=== PATIENT | male | born 1975 | race African-American/Black ===

== ENCOUNTER → 2019-06-18 | Outpatient (CLI) | payer OTHER ==
--- NOTE | 2019-06-18 13:46 | REP ---
Right foot four views : There is no fracture or dislocation. Mineralization and joint spaces are normal. There are no calcifications or foreign bodies. There is calcified atheroma in the distal anterior tibial artery and distal posterior tibial artery. On the lateral view there is possibly a pes planus. This could be confirmed with standing views. Impression: Possible pes planus. This could be confirmed with standing views. Calcified atheroma in the distal anterior tibial artery and distal posterior tibial artery. Otherwise, negative right foot . Left foot four views : There is no fracture or dislocation. Mineralization and joint spaces are normal. There are no calcifications or foreign bodies. There is calcified atheroma in the distal anterior tibial artery and distal posterior tibial artery. Lateral view there is question of a pes planus. This could be confirmed with standing views. Impression: Possible pes planus This could be confirmed with standing views. Calcified atheroma in the anterior tibial artery and posterior tibial artery. Otherwise, negative left foot . Electronically Signed by Anatoly Brown MD 06/18/2019 01:38 P
== END ==
LOC: M RAD 08:52
PROVIDERS: ATTEND Surgery
DX: M79.671 Pain in right foot (principal); M79.672 Pain in left foot; I70.203 Unspecified atherosclerosis of native arteries of extremities, bilateral legs

== ENCOUNTER 2019-10-30 14:18 | Emergency (ER) | payer OTHER ==
[~2019-10-30] VITALS: Ht 175.3 cm; Wt 77.7 kg
[2019-10-30] MEDS ORDERED: KETOROLAC 30 MG/ML VIAL (J1885) IV ONE (14:45)
--- NOTE | 2019-10-30 14:49 | REP ---
Portable chest x-ray: Single view. History: Chest pain. No comparison study. Findings: The lungs are symmetrically aerated and clear. Pleural angles are sharp. EKG electrodes are seen. Heart size is normal. Pulmonary vasculature is not increased. No significant bony abnormality. Impression: Negative portable chest x-ray. Electronically Signed by Naresh Melton MD 10/30/2019 02:40 P
[2019-10-30 15:06] LABS: BASO % 0.4 % (0.0-1.0); EOS # 0.2 10^3/uL (0.0-0.5); EOS % 3.8 % (0.0-3.0); HEMATOCRIT 39.5 % (42.0-52.0); HEMOGLOBIN 12.2 g/dl (13.5-17.5); LYMPH # 2.7 10^3/uL (1.5-5.0); LYMPH % 57.2 % (24.0-44.0); MEAN CORPUSCULAR HEMOGLOBIN 27.1 pg (27.0-33.0); MEAN CORPUSCULAR HGB CONC 30.9 g/dl (32.0-36.5); MEAN CORPUSCULAR VOLUME 87.8 fl (80.0-96.0); MONO # 0.4 10^3/uL (0.0-0.8); MONO % 7.5 % (0.0-5.0); NEUTROPHILS # 1.5 10^3/uL (1.5-8.5); NEUTROPHILS % 30.9 % (36.0-66.0); PLATELET COUNT, AUTOMATED 173 10^3/uL (150-450); WHITE BLOOD COUNT 4.8 10^3/uL (4.0-10.0)
[2019-10-30 15:32] LABS: ERYTHROCYTE SEDIMENTATION RATE 7 mm/hr (0-15)
[2019-10-30 15:47] LABS: ALT/SGPT 34 U/L (12-78); BILIRUBIN,DIRECT 0.1 MG/DL (0.0-0.2); BILIRUBIN,TOTAL 0.3 MG/DL (0.2-1.0); BLOOD UREA NITROGEN 12 MG/DL (7-18); CALCIUM LEVEL 8.6 MG/DL (8.5-10.1); CARBON DIOXIDE LEVEL 29 MEQ/L (21-32); CHLORIDE LEVEL 107 MEQ/L (98-107); CK-MB VALUE MASS 2.9 NG/ML (<3.6); CPK CREATINE PHOSPHOKINASE 1430 U/L (39-308); CREATININE FOR GFR 1.09 MG/DL (0.70-1.30); GLOMERULAR FILTRATION RATE > 60.0 (>60); GLUCOSE, FASTING 83 MG/DL (70-100); LIPASE 92 U/L (73-393); POTASSIUM SERUM 4.2 MEQ/L (3.5-5.1); SODIUM LEVEL 139 MEQ/L (136-145); TOTAL PROTEIN 7.1 GM/DL (6.4-8.2); TROPONIN I 0.08 NG/ML (< 0.10)
[2019-10-30] MEDS ORDERED: NS 1,000 ML IV ONE (16:00)
[2019-10-30 17:18] LABS: CK-MB VALUE MASS 2.8 NG/ML (<3.6); MB/CK RELATIVE INDEX 0.21 (< OR =4); TROPONIN I 0.09 NG/ML (< 0.10)
[2019-10-30 17:28] VITALS: BP 113/63
--- NOTE | 2019-10-30 18:15 | ECGEPIP ---
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
== END 2019-10-30 17:34 | disposition home or self-care (01) ==
LOC: M ED 14:18
DX: R00.1 Bradycardia, unspecified (principal); I45.10 Unspecified right bundle-branch block; R07.81 Pleurodynia; F17.200 Nicotine dependence, unspecified, uncomplicated; Z91.013 Allergy to seafood
CPT/HCPCS: 71045; 80048; 80076; 82550; 82553; 83690; 84484; 85025; 85379; 85652; 93005; 93041; 94760; 96361; 96374; 99285; J1885

== ENCOUNTER → 2020-04-11 | Outpatient (CLI) | payer OTHER ==
--- NOTE | 2020-06-02 14:32 | REP ---
LEFT TIBIA-FIBULA RADIOGRAPHS CLINICAL: Tenderness, swelling. TECHNIQUE: AP and lateral views of the left tibia-fibula. FINDINGS: No acute fracture or dislocation. Skeletal structures, joint spaces, and surrounding soft tissues appear normal. No subcutaneous emphysema or foreign body. IMPRESSION: Normal left tibia-fibula radiographs. MTDD
--- NOTE | 2020-06-02 14:33 | REP ---
LEFT KNEE SERIES CLINICAL: Pain and swelling. TECHNIQUE: AP, lateral, bilateral oblique, and sunrise views of the left knee. FINDINGS: Lateral and sunrise views demonstrate prepatellar soft tissue swelling and possible suprapatellar fusion. There is no evidence for acute fracture or dislocation. There is an irregular area of calcification within the intramedullary distal femur consistent with old bony infarction or chronic benign enchondroma. IMPRESSION: 1. Swelling and possible effusion. 2. No acute fracture or dislocation. MTDD
== END ==
LOC: M RAD 08:40
PROVIDERS: ATTEND Surgery
DX: R22.42 Localized swelling, mass and lump, left lower limb (principal)

== ENCOUNTER 2020-08-06 10:51 | Emergency (ER) | payer OTHER ==
[~2020-08-06] VITALS: Ht 165.1 cm; Wt 90.0 kg
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
[2020-08-06 12:32] LABS: BASO % 0.3 % (0.0-1.0); EOS # 0.1 10^3/uL (0.0-0.5); EOS % 0.5 % (0.0-3.0); HEMATOCRIT 46.1 % (42.0-52.0); HEMOGLOBIN 14.4 g/dl (13.5-17.5); LYMPH # 1.5 10^3/uL (1.5-5.0); LYMPH % 15.4 % (24.0-44.0); MEAN CORPUSCULAR HEMOGLOBIN 27.2 pg (27.0-33.0); MEAN CORPUSCULAR HGB CONC 31.2 g/dl (32.0-36.5); MEAN CORPUSCULAR VOLUME 87.1 fl (80.0-96.0); MONO # 0.6 10^3/uL (0.0-0.8); MONO % 6.2 % (0.0-5.0); NEUTROPHILS # 7.4 10^3/uL (1.5-8.5); NEUTROPHILS % 77.4 % (36.0-66.0); PLATELET COUNT, AUTOMATED 179 10^3/uL (150-450); RED BLOOD COUNT 5.29 10^6/uL (4.30-6.10); WHITE BLOOD COUNT 9.5 10^3/uL (4.0-10.0)
[2020-08-06] MEDS ORDERED: FLUORESCEIN OPHTH 1 MG STRIP OS ONE (12:45)
[2020-08-06 13:01] LABS: INR 0.91; PARTIAL THROMBOPLASTIN TIME 26.5 SECONDS (24.2-38.5); PROTHROMBIN TIME 12.4 SECONDS (12.5-14.3)
[2020-08-06 13:19] LABS: ALBUMIN 4.2 GM/DL (3.2-5.2); BILIRUBIN,DIRECT 0.2 MG/DL (0.0-0.2); BILIRUBIN,TOTAL 0.5 MG/DL (0.2-1.0); CK-MB VALUE MASS 3.2 NG/ML (<3.6); MB/CK RELATIVE INDEX 0.25 (< OR =4); TOTAL PROTEIN 7.2 GM/DL (6.4-8.2); TROPONIN I 0.02 NG/ML (< 0.10)
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
[2020-08-06] MEDS ORDERED: NORCO, ANEXSIA 5/325MG TABLET (HYDROcodone/ACETAMINOPHEN) PO ONE (13:45)
[2020-08-06] MEDS ORDERED: ceFAZolin SOD 1 GM in D5W MINI-BAG PLUS 50 ML IV ONE (14:00)
[2020-08-06] MEDS ORDERED: NS 1,000 ML IV ONE (14:00)
[2020-08-06 15:30] VITALS: BP 184/76
== END 2020-08-06 15:39 | disposition short-term general hospital (02) ==
LOC: M ED 10:51
DX: S05.92XA Unspecified injury of left eye and orbit, initial encounter (principal); S02.2XXA Fracture of nasal bones, initial encounter for closed fracture; Y04.8XXA Assault by other bodily force, initial encounter; Y92.149 Unspecified place in prison as the place of occurrence of the external cause; Y93.9 Activity, unspecified; Y99.9 Unspecified external cause status; M50.30 Other cervical disc degeneration, unspecified cervical region; R01.1 Cardiac murmur, unspecified; F17.200 Nicotine dependence, unspecified, uncomplicated; Z91.013 Allergy to seafood
CPT/HCPCS: 70450; 70486; 72125; 73030; 73060; 80047; 80076; 82550; 82553; 83690; 84484; 85025; 85610; 85730; 86850; 86900; 86901; 93041; 94760; 96365; 99291; J0690

== ENCOUNTER 2020-09-29 10:27 | Emergency (ER) | payer OTHER ==
[~2020-09-29] VITALS: Ht 175.3 cm; Wt 82.1 kg
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
--- OUTSIDE RECORDS SUMMARY | 2020-09-29 11:50 | CCD | Summary of Care ---
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 hyperintensity and patchy enhancement throughout the l eft optic nerve sheath . The right optic nerve is normal. The optic chiasm is no rmal. INTRAORBITAL FAT AND VESSELS: Small lef t retrobulbar hematoma adjacent to the posterior aspect of the left globe. The re is heterogenous enhancement of the intraorbital fat of the left orbit like ly related to inflammation from recent trauma. EXTRAOCULAR MUSCLES: The extraocular muscles demonstrate no rmal signal and morphology. LACRIMAL GLANDS: Symmetric and normal in size and signa l. VISUALIZED PARANASAL SINUSES AND MASTOI D AIR CELLS: Clear. BONES: Intact. Procedure Note Interface, Received Via [employer] ([employer]) System - 08/07/2020 11:23 AM EST INDICATION: pt w/ CT maxfac findings concerning for optic nerve hematoma; assess for ocular injury. TECHNIQUE: Multiplanar and multisequence MR images of the orbits were obtained without intravenous contrast administration. Axial and coronal T1-weighted images were then acquired following intravenous administration of 7.5 mL of Gadavist contrast. COMPARISON: CT maxillofacial from outside hospital dated 08/06/2020. FINDINGS: GLOBES: The globes exhibit normal morphology. The lenses are appropriately positioned. There is mild left proptosis. OPTIC NERVE SHEATH COMPLEX AND OPTIC CHIASM: There is minimal T2 hyperintensity and patchy enhancement throughout the left optic nerve sheath . The right optic nerve is normal. The optic chiasm is normal. INTRAORBITAL FAT AND VESSELS: Small left retrobulbar hematoma adjacent to the posterior aspect of the left globe. There is heterogenous enhancement of the intraorbital fat of the left orbit likely related to inflammation from recent trauma. EXTRAOCULAR MUSCLES: The extraocular muscles demonstrate normal signal and morphology. LACRIMAL GLANDS: Symmetric and normal in size and signal. VISUALIZED PARANASAL SINUSES AND MASTOID AIR CELLS: Clear. BONES: Intact. IMPRESSION: 1. Minimal T2 hyperintensity and patchy enhancement throughout the left optic nerve sheath may represent the inflammation due to retro-orbital hematoma,. However mild optic nerve injury is not ruled out. 2. Small left retrobulbar hematoma truman cent to the posterior aspect of the globe with mild left proptosis. 3. Heterogenous enhancement of the intr aorbital fat of the left orbit likely related to inflammation from recent trauma. Findings were discussed with Dr. Cortez Kevin by Dr. Palmer via phone at 8:00 AM on 08/07/2020. Performing Organization Address City/State/Zipcode Ph one Number [facility] [address] [place] [address] * XR Shoulder Complete Right (08/07/2020 2:39 AM EST) Specimen Narrative Performed At [facility] PROCEDURE INFORMATION: Exam: XR Right Shoulder Exam date and time: 08/07/2020 5:29 AM Age: 44 years old Clinical indication: Contusion of eyeba ll and orbital tissues, left eye, initial encounter; Other: Trauma eval f or fracture TECHNIQUE: Imaging protocol: XR Right shoulder. Views: 2 or more views. COMPARISON: No relevant prior studies available. FINDINGS: Bones/joints: Normal. Soft tissues: Normal. IMPRESSION: No acute findings. THIS DOCUMENT HAS BEEN ELECTRONICALLY S IGNED BY YANNI SIEGEL MD Procedure Note Interface, Received Via [employer] System - 08/07/2020 6:14 AM EST PROCEDURE INFORMATION: Exam: XR Right Shoulder Exam date and time: 08/07/2020 5:29 AM Age: 44 years old Clinical indication: Contusion of eyeball and orbital tissues, left eye, initial encounter; Other: Trauma eval for fracture TECHNIQUE: Imaging protocol: XR Right shoulder. Views: 2 or more views. COMPARISON: No relevant prior studies available. FINDINGS: Bones/joints: Normal. Soft tissues: Normal. IMPRESSION: No acute findings. THIS DOCUMENT HAS BEEN ELECTRONICALLY SIGNED BY YANNI SIEGEL MD Performing Organization Address City/State/Zipcode Ph one Number [facility] [address] [place] [address] * COVID-19 PCR (08/07/2020 12:35 AM EST) Specimen Nasopharyngeal Swab [facility] Description CLINICAL PATHOLOGY SARS CoV-2 2019 nCoV Real-Time RT-PCR: 2019 nCoV Real-Myles e [facility] NOT DETECTED RT-PCR: NOT DETECTED [facility] Pathology Assay performed Test performed using [employer] [facility] miner COVID-19 MDx Assay. This test [facility] is only for use under Food and Pathology Drug Administration's Emergency Use Authorization. Additional information is available on the following FDA websites for healthcare providers and patients. https://www.fda.gov/media/2458 20/download, https://www.fda.gov/media/8523 21/download First COVID-19 NO [facility] Test? CLINICAL PATHOLOGY Employed in NO [facility] healthcare CLINICAL setting? PATHOLOGY Symptomatic for NO [facility] COVID-19 as CLINICAL defined by CDC? PATHOLOGY Date of symptom UNKNOWN [facility] onset? CLINICAL ([id number]) PATHOLOGY Hospitalized NO [facility] for COVID-19? CLINICAL PATHOLOGY Admitted to ICU UNKNOWN [facility] for COVID-19? CLINICAL PATHOLOGY Resident in a YES [facility] CLINICAL (group) care PATHOLOGY setting? ? UNKNOWN [facility] PATHOLOGY Specimen Nasopharyngeal Swab Performing Organization Address City[facility] Ph one Number [facility] [address] [place], [place] [address] PATHOLOGY [facility] [address] [place], [place] [address] Clin Pathology * CBC and Differential (08/07/2020 12:04 AM EST) White Blood 8.7 4 - 10 10*3/uL [facility] Clin Pathology Red Blood Cell 5.00 4.6 - 6.1 10*6/uL [facility] Clin Pathology Hemoglobin 13.9 13.5 - 18 g/dL [facility] Clin Pathology Hematocrit 43.3 41 - 53 % [facility] Clin Pathology Mean Cell 86.5 80 - 96 fL [facility] Volume [facility] Univ Clin Pathology Mean Cell 27.7 27 - 33 pg [facility] Clin Pathology Mean Cell Hgb 32.1 32.0 - 36.0 g/dL [facility] Clin Pathology Red Cell Dist 13.8 11.5 - 14.5 % [facility] Width [facility] Clin Pathology Platelet Count 166 150 - 400 10*3/uL [facility] Clin Pathology Differential Automated Diff [facility] Type [facility] Clin Pathology Neutrophil 62 % [facility] Clin Pathology Lymphocyte 30 % [facility] Clin Pathology Monocyte 7 % [facility] Clin Pathology Eosinophil 1 % [facility] Clin Pathology Basophil 0 % [facility] Clin Pathology Abs Neutrophil 5.38 1.8 - 7.0 10*3/uL [facility] Clin Pathology Abs Lymphocyte 2.56 1.2 - 4.0 10*3/uL [facility] Clin Pathology Abs Monocyte 0.63 0 - 0.8 10*3/uL [facility] Clin Pathology Abs Eosinophil 0.09 0 - 0.5 10*3/uL [facility] Clin Pathology Abs Basophil 0.04 0 - 0.2 10*3/uL [facility] Clin Pathology Nucleated Red 0 0 - 0 /100{WBCs} [facility] Blood Cells [facility] Clin Pathology Specimen EDTA Whole Blood Performing Organization Address City/[facility] Ph one Number [facility] [address] [place], [place] [address] PATHOLOGY [facility] [address] [place], [place] [address] Clin Pathology * Basic Metabolic Panel (08/07/2020 12:04 AM EST) Bicarbonate 22 22 - 29 mmol/L [facility] Chloride 102 98 - 107 mmol/L [facility] Creatinine 1.12 0.70 - 1.20 mg/dL [facility] Glucose 72 70 - 140 mg/dL [facility] Potassium 4.0 3.4 - 5.1 mmol/L [facility] Sodium 137 136 - 145 mmol/L [facility] Blood Urea 13 6 - 20 mg/dL [facility] Nitrogen CLINICAL PATHOLOGY Anion Gap 13 8 - 15 mmol/L [facility] Osmolality, Donaldo 282 275 - 300 mosm/kg [facility] BUN/Cre Ratio 11 [facility] Calcium 9.3 8.6 - 10.0 mg/dL [facility] GFR Non 78 >60 mL/min/1.73m2 [facility] 2008 CLINICAL CDK-EPI PATHOLOGY GFR >90 >60 mL/min/1.73m2 [facility] 2008 CLINICAL CKD-EPI PATHOLOGY Specimen Plasma Performing Organization Address City/State/[facility] Ph one Number [facility] [address] [place], [place] [address] PATHOLOGY documented in this encounter Visit Diagnoses Diagnosis Traumatic hematoma of left orbit - Prim leelee Closed fracture of nasal bone with rout ine healing Facial laceration Open wound of face, unspecified site, w ithout mention of complication Acute pain due to trauma documented in this encounter Administered Medications Action Date Dose Rate Site Medication Order MAR Action acetaminophen (TYLENOL) tablet 650 mg 650 mg, Oral, Every 4 hours PRN, Mild Pain (Pain Scale Score 1-3), Mild to Moderate Pain, Starting 08/06/20 at 2304, For 30 days, Maximum daily dose o f acetaminophen is 3,000 mg from all sources in 24 hours., 08/08/2020 4:31 AM EST 650 mg acetaminophen (TYLENOL) tablet 650 mg Given 650 mg, Oral, Every 4 hours PRN, Mild Pain (Pain Scale Score 1-3), Starting 08/06/20 at 2349, For 30 days, Maximum daily dose of acetaminophen is 3,000 mg from all sources in 24 hours., 650 mg Given 08/07/2020 6:35 PM EST 650 mg Given 08/07/2020 12:33 AM EST 08/08/2020 7:54 AM EST 1 drop dorzolamide-timolol (COSOPT) 22.3-6.8 Given MG/ML ophthalmic solution 1 drop 1 drop, Left Eye, 2 Times Daily, First dose on 08/07/20 at 1300, For 10 days 1 drop Given 08/07/2020 9:31 PM EST 1 drop Given 08/07/2020 1:48 PM EST 08/08/2020 1:21 PM EST 1 cm erythromycin (ROMYCIN) ophthalmic Given ointment 1 cm 1 cm, Left Eye, Four Times Daily Standard, First dose on 08/07/20 at 1300, For 10 days 1 cm Given 08/08/2020 7:54 AM EST 1 cm Given 08/07/2020 9:31 PM EST 08/08/2020 1:21 PM EST 5 mg oxyCODONE (ROXICODONE) immediate release Given tablet 5 mg 5 mg, Oral, Every 4 hours PRN, Moderate Pain (Pain Scale Score 4-6), Starting 08/06/20 at 2349, For 3 days, Oxycodone immediate release is limited to 10 mg per dose. Higher doses ( only) require Pain Service consultation and approval., 5 mg Given 08/07/2020 6:35 PM EST 5 mg Given 08/07/2020 5:45 AM EST Action Date Dose Rate Site Medication Order MAR Action 08/07/2020 8:00 AM EST 1 drop dorzolamide-timolol (COSOPT) 22.3-6.8 Given MG/ML ophthalmic solution 1 drop 1 drop, Left Eye, 2 Times Daily, First dose on 08/07/20 at 0900, For 30 days 08/07/2020 5:45 AM EST 1 cm erythromycin (ROMYCIN) ophthalmic Given ointment 1 cm 1 cm, Left Eye, Every 6 hours Standard (4 times per day), First dose on 08/07/20 at 0600, For 2 days 08/07/2020 8:00 AM EST 1 cm erythromycin (ROMYCIN) ophthalmic Given ointment 1 cm 1 cm, Left Eye, 2 Times Daily, First dose on 08/07/20 at 0900, For 7 days, Please apply to LEFT EYEBROW LACERATION, 08/07/2020 7:00 AM EST 7.5 mLs gadobutrol (GADAVIST) contrast injection Given by IV 7.5 mL push 7.5 mL (rounded from 7.86 mL = 0.1 mL/k g 78.6 kg), Intravenous, 1 TIME IMAGING, 08/07/20 at 0645, For 1 dose, Do no t mix or administer in the same IV line with other medications., 08/06/2020 7:34 PM EST 1 mL lidocaine-EPINEPHrine 1 %-1:266370 Given by injection 1 mL Other 1 mL, Infiltration, Once, 08/06/20 at 1930, For 1 dose 08/06/2020 6:12 PM EST 8 mg morphine sulfate (PF) injection 8 mg New Bag 8 mg, Intravenous, Once, 08/06/20 a t 1815, For 1 dose 08/06/2020 7:21 PM EST 1 drop tetracaine (PONTOCAINE) 0.5 % ophthalmic Given by solution 1 drop Other 1 drop, Left Eye, Once, 08/06/20 at 1915, For 1 dose documented in this encounter
--- OUTSIDE RECORDS SUMMARY | 2020-09-29 11:50 | CCD | Summary of Care ---
Author Author [facility] Address Unknown Phone Unavailable Care Team Providers Care Theology Professor Name Role Phone Pcp, No PCP Unavailable Reason for Visit * Reason Comments Eye Injury Encounter Details Care Team Description Date Type Department Heather Stevens MD [address] [place] [address] Traumatic hematoma of left orbit, initia l encounter (Primary Dx); Trauma; Commotio retinae of left eye, subsequent encounter; Subconjunctival hemorrhage of left eye 08/10/2020 Office Visit [place] [facility] [address] [place] [address] Allergies Comments Active Allergy Reactions Severity Noted Date Fish Allergy Anaphylaxis High 08/06/2020 Naproxen Hives Medium 08/07/2020 documented as of this encounter (statuses as of 08/10/2020) Medications End Date Status Medication Sig Dispensed [...] eye Four times daily for 10 days Status Hospital, Clinic, or Ordered Dose Route Frequency Start End Date Other Facility Date Administered Medication Ended tropicamide (MYDRIACYL) 1 1 drop Both Eyes Once 08/10/20 % ophthalmic solution 1 20 0 drop Ended phenylephrine (MYDFRIN) 1 drop Both Eyes Once 08/10/20 2.5 % ophthalmic solution 20 0 1 drop Ended fluorescein-benoxinate 1 drop Both Eyes Once 08/10/20 (FLURATE) 0.25-0.4 % 20 0 ophthalmic solution 1 drop documented as of this encounter (statuses as of 08/10/2020) Active Problems Problem Noted Date Trauma 08/10/2020 Commotio retinae of left eye 08/10/2020 Subconjunctival hemorrhage of left eye 08/10/2020 Closed fracture of nasal bone with routine healing 1 10/06/2019 Traumatic hematoma of left orbit 08/06/2020 Facial laceration 08/06/2020 Acute pain due to trauma 08/06/2020 documented as of this encounter (statuses as of 08/10/2020) Social History Date Tobacco Use Types Packs/Day Years Used Former Smoker Cigarettes 0.25 5 Smokeless Tobacco: Never Used Drinks/Week oz/Week Comments Alcohol Use Not Currently Sex Assigned at Date Recorded Not on file Date Recorded COVID-19 Exposure Response 08/10/2020 11:34 AM EST In the last month, have you been in contact with Martah ble to assess someone who was confirmed or suspected to have Coronavirus / COVID-19? documented as of this encounter Last Filed Vital Signs Not on filedocumented in this encounter Patient Instructions * Patient Instructions* Heather Stevens MD - 08/10/2020 12:15 PM EST Please follow the physician's instructions as communicated during the office vis it. Medications should be taken/given as prescribed or recommended by the physic jyoti. Please keep the follow-up appointment as recommended by the physician and r eturn sooner if any changes, questions, or concerns arise. documented in this encounter Progress Notes * Heather Stevens MD - 08/10/2020 12:15 PM EST Chief Complaint Patient presents with Eye Injury HPI Eye Injury Laterality: left eye Comments New patient referral from ED for Orbital fracture, Retrobulbar hemorrhage, reti na commotio OS 08/06/20: Eye meds: Cosopt BID OS Eyrthro QID OS Patient states that he is using eye medicine as prescribed. Dash notes that t stephanie his left eye still is painful and is having a hard time seeing DVO & NVO. Symptoms still include Swelling, redness, LS, also associated with headache. Patient denies flashes floaters today. Last edited by Beatrice Gottlieb on 08/10/2020 12:00 PM. (History) History: Patient's medications, allergies, past medical, surgical, social, and f amily histories were reviewed and updated as appropriate. History reviewed. No pertinent surgical history. Past Medical History: Diagnosis Date Arthritis Family History Problem Relation Age of Onset [...] file Gets together: Not on file Attends buddhist service: Not on file Active member of [...] Dist sc 20/20 20/125 Dist ph sc 20/40 -2 Tonometry (Tonopen, 12:16 PM) Right Left Pressure 15 10 Pupils Pupils Dark APD Right PERRL 4 None Left PERRL 4 None Visual Carter Left Right Full Full Extraocular Movement Right Left Full Full Neuro/Psych Oriented x3: Yes Mood/Affect: Normal Dilation Both eyes: 1.0% Tropicamide/2.5% Phenylephrine @ 12:23 PM Slit Lamp and Fundus Exam External Exam Right Left External Right facial laceration covered with dressing that is dry and intact a nd covered with face mask superficial partial thickness skin laceration under an d lateral to left eyebrow Slit Lamp Exam Right Left Lids/Lashes Normal mild edema Conjunctiva/Sclera White and Quiet 4+ injection and Cornea Clear Clear Anterior Chamber Deep and Quiet Deep and 3+ pigmented cell, no layered hypema Iris Flat, Round Flat, Round Lens Clear Clear Vitreous Clear Clear Fundus Exam Right Left Disc Sharp and [place] Sharp and [place] C/D Ratio 0.1 0.1 Macula Normal no berlin edema to best view due to photophobia Vessels Normal Normal Periphery Flat x 4 Quadrants, No Holes, Tears, or Detachments Flat x 4 Quadrant s, resolved retina commotio to best view, exam limited due to photophobia We administered tropicamide, phenylephrine, and fluorescein-benoxinate. The following tests were performed today and reviewed with the patient (for the professional interpretation refer to the Oph Proc tab in chart review): OCT RETINA Right Eye Quality was good. Clinical Findings: Signal Strength >6. Intraretinal Fluid: No . Subretinal Fluid: No . Foveal depression: Intact. Left Eye Quality was good. Clinical Findings: Signal Strength >6. Intraretinal Fluid: No . Subretinal Fluid: No . Foveal depression: Intact. General Details Comparative Data: No prior study for comparison. Given above study findings we will continue current management in coordination w ith the most recent as well as future examinations, and input from the patient. Notes Normal OU DX/Plan: Dash Robledo is a 44 y.o. male with: # Retrobulbar hemorrhag, left eye - without orbital fracture. Unknown objects ?fist vs Eye on 08/06/20 around 8:15 am No evidence of globe rupture VA improved to 20/40 ph IOP 10 on Cosopt BID No APD EOM on upgaze restriction due to inferior conjunctival chemosis # Commotio retinae/berlin's edema, left eye - improving on exam - Discussed with the patient that it's a factor contributing to his decreased vi donna - OCT mac normal OU - Monitor with repeat DFE on follow up # Subconjunctival Hemorrhage, left eye - continue erythromycin ointment 4 x/day - Monitor. # Left eyebrow superficial partial thickness laceration Continue erythromycin ointment QID # Discussed guarded visual prognosis, importance of adherence to medical regimen , and importance of close medical follow up; patient noted verbal understanding. Plan: Start Maxitrol(rkifkfdv-xcpxldnep-lnuvtwvjuftst) drops 4 times a day to the left eye Start Atropine 2 times a day to the left eye Continue Cosopt 2 times a day to the left eye Continue erythromycin ointment to left eye 4 times a day Counseling provided for the following issues, either verbally and/or hand-out: N /A Seen with ANAY Garduno Patient to call with any change, concern, or new ophthalmic or eye related issue s. F/U: Return in about 1 week (around 08/17/2020) for General clinic, AC and pupil check. Dilate yes Heather Stevens M.D. Resident's history reviewed, patient interviewed and examined. I agree. On exam I find: He is having pain when he looks up and to the left. The eye mov es very well and I do not think it is entrapped. Reviewed the MRI and CTAnd did not find any evidence of bony abnormality that would be impinging on the eye. There is swelling of the lateral conjunctiva which is a bit unusual. Almost loo ks like a fat pad has slipped up. Trial Maxitrol. Give it more time. assessment and plan reviewed with resident. Sree Guevara Robert T, MD, agree with the diagnosis and treatment plan as documente d by the resident. Anay Balbuena MD documented in this encounter Nursing Notes * Beatrice Gottlieb - 08/10/2020 12:15 PM EST Bull Guevara Mary Beth, worked up this patient. Beatrice Gottlieb documented in this encounter Plan of Treatment Date/Time Name Type Priority Associated Diag noses 08/10/2020 12:52 PM EST OCT RETINA Ophth Imaging Routine Trauma Health Maintenance Due Date Last Done Comments MMR Vaccines ( - 12/03/1976 Standard series) Varicella Vaccines (12/03/1976 2 - 2-dose childhood series) DTaP,Tdap,and Td [...] left orbit, initi al encounter - Primary Trauma Injury, other and unspecified, unspecif ied site Commotio retinae of left eye, subsequen t encounter Subconjunctival hemorrhage of left eye documented in this encounter Administered Medications Action Date Dose Rate Site Medication Order MAR Action 08/10/2020 12:27 PM EST 1 drop fluorescein-benoxinate (FLURATE) Given 0.25-0.4 % ophthalmic solution 1 drop 1 drop, Both Eyes, Once, Sat08/10/20 a t 1230, For 1 dose 08/10/2020 12:27 PM EST 1 drop phenylephrine (MYDFRIN) 2.5 % ophthalmic Given solution 1 drop 1 drop, Both Eyes, Once, Sat08/10/20 a t 1230, For 1 dose 08/10/2020 12:27 PM EST 1 drop tropicamide (MYDRIACYL) 1 % ophthalmic Given solution 1 drop 1 drop, Both Eyes, Once, Sat08/10/20 a t 1230, For 1 dose documented in this encounter
--- OUTSIDE RECORDS SUMMARY | 2020-09-29 11:50 | CCD ---
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 positioned. There is mild left proptosis.OPTIC NERVE SHEATH COMPLEX AND OPTIC CHIASM: There is minimal T2 hyperintensity and patchy enhancement throughout the left optic nerve sheath . The right optic nerve is normal. The optic chiasm is normal.INTRAORBITAL FAT AND VESSELS: Small left retrobulbar hematoma adjacent to the posterior aspect of the left globe. There is heterogenous enhancement of the intraorbital fat of the left orbit likely related to inflammation from recent trauma.EXTRAOCULAR MUSCLES: The extraocular muscles demonstrate normal signal and morphology.LACRIMAL GLANDS: Symmetric and normal in size and signal.VISUALIZED PARANASAL SINUSES AND MASTOID AIR CELLS: Clear.BONES: Intact.IMPRESSION: 1. Minimal T2 hyperintensity and patchy enhancement throughout the left optic nerve sheath may represent the inflammation due to retro-orbital hematoma,. However mild optic nerve injury is not ruled out.2. Small left retrobulbar hematoma adjacent to the posterior aspect of the globe with mild left proptosis.3. Heterogenous enhancement of the intraorbital fat of the left orbit likely related to inflammation from recent trauma.Findings were discussed with Dr. Cortez Kevin by Dr. Palmer via phone at 8:00 AM on 08/07/2020.This document has been electronically signed by Robin Dhaliwal MD on 08/07/2020 11:20 AM Name Value Range Interpretation Code Description Data Fiona rce(s) Supporting Document(s) ID Date Data Source [id number] 08/07/2020 06:14:27 AM [facility] XR SHOULDER COMPLETE [id number] RESULTIn terpreted by:Yanni Siegel MDPROCEDURE INFORMATION: Exam: XR Right Shoulder Exam date [...] HAS BEEN ELECTRONICALLY SIGNED BY YANNI SIEGEL MDThis document has been electronically signed by Yanni Siegel MD on 08/07/2020 6:14 AM Name Value Range Interpretation Code Description Data Fiona rce(s) Supporting Document(s) ID Date Data Source [id number] 08/07/2020 09:46:35 AM [facility] Name Value Range Interpretation Code Description Data Fiona rce(s) Supporting Document(s) Specimen source [Identifier] of Unspecified specimen [facility] SARS-CoV-2 RNA 2019 nCoV Real-Time RT-PCR: NOT DETECTED [facility] Assay Performed [facility] Patients first test for [facility] 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 [facility] Patient has symptoms related to [facility] When did you start to experience these symptoms [Date and time] [Phen X] [facility] Patient was hospitalized because of this condition [facility] patient was admitted to ICU for [facility] Patient resides in a congregate care setting [facility] status [facility] ID Date Data Source [id number] 08/07/2020 12:35:00 AM [facility] Name Value Range Interpretation Code Description Data Fiona rce(s) Supporting Document(s) SARS-CoV-2 RNA [facility] This lab was ordered by [facility] and reported by [facility]. ID Date Data Source [id number] 08/07/2020 12:25:17 AM [facility] Name Value Range Interpretation Code Description Data Fiona rce(s) Supporting Document(s) Progress Note [facility] [id number] lbm [file] [id number] ID Date Data Source [id number] 08/07/2020 01:04:31 AM EST [facility] Name Value Range Interpretation Code Description Data Fiona e(s) Supporting Document(s) Leukocytes [#/volume] in Blood by Automated count 8.7 10*3/uL 4-10 [facility] Erythrocytes [#/volume] in Blood by Automated count 5.00 10*6/uL 4.6- 6.1 [facility] Hemoglobin [Mass/volume] in Blood 13.9 g/dL 13.5-18 [facility] Hematocrit [Volume Fraction] of Blood by Automated count 43.3 % 4 1-53 [facility] Erythrocyte mean corpuscular volume [Entitic volume] by Auto mated count 86.5 fL 80-96 [facility] Erythrocyte mean corpuscular hemoglobin [Entitic mass] by Automated count 27.7 pg 27-33 [facility] Erythrocyte mean corpuscular hemoglobin concentration [Mass/volume] by Automated count 32.1 g/dL 32.0-36.0 [facility] width [Ratio] by Automated count 13.8 % 11.5-14.5 [facility] Platelets [#/volume] in Blood by Automated count 166 10*3/uL 150-400 [facility] Differential cell count method - Blood [facility] Neutrophils/100 leukocytes in Blood by Automated count 62 % [facility] Lymphocytes/100 leukocytes in Blood by Automated count 30 % [facility] Monocytes/100 leukocytes in Blood by Automated count 7 % [facility] Eosinophils/100 leukocytes in Blood by Automated count 1 % [facility] Basophils/100 leukocytes in Blood by Automated count 0 % [facility] Neutrophils [#/volume] in Blood by Automated count 5.38 10*3/uL 1.8-7 .0 [facility] Lymphocytes [#/volume] in Blood by Automated count 2.56 10*3/uL 1.2-4 .0 [facility] Monocytes [#/volume] in Blood by Automated count 0.63 10*3/uL 0-0.8 [facility] Eosinophils [#/volume] in Blood by Automated count 0.09 10*3/uL 0-0.5 [facility] Basophils [#/volume] in Blood by Automated count 0.04 10*3/uL 0-0.2 [facility] Nucleated erythrocytes/100 leukocytes [Ratio] in Blood by Automated count 0 /100{WBCs} 0-0 [facility] ID Date Data Source [id number] 08/07/2020 01:25:24 AM [facility] Name Value Range Interpretation Code Description Data Fiona rce(s) Supporting Document(s) Bicarbonate [Moles/volume] in Serum 22 mmol/L 22-29 [facility] Chloride [Moles/volume] in Serum or Plasma 102 mmol/L 98-107 [facility] Creatinine [Mass/volume] in Serum or Plasma 1.12 mg/dL 0.70-1.20 [facility] Glucose [Mass/volume] in Serum or Plasma 72 mg/dL 70-140 [facility] Potassium [Moles/volume] in Serum or Plasma 4.0 mmol/L 3.4-5.1 [facility] Sodium [Moles/volume] in Serum or Plasma 137 mmol/L 136-145 [facility] Urea nitrogen [Mass/volume] in Serum or Plasma 13 mg/dL 6-20 [facility] Anion gap 3 in Serum or Plasma 13 mmol/L 8-15 [facility] Osmolality of Serum or Plasma by calculation 282 mosm/kg 275-300 [facility] Creatinine/Urea nitrogen [Mass Ratio] in Serum or Plasma 11 [facility] Calcium [Mass/volume] in Serum or Plasma 9.3 mg/dL 8.6-10.0 [facility] Glomerular filtration rate/1.73 sq M pre dicted among non-blacks [Volume Rate/Area] in Serum or Plasma by Creatinine-based formula (MDRD) 78 mL/min/1.73m2 >60 [facility] Glomerular filtration rate/1.73 sq M pre dicted among blacks [Volume Rate/Area] in Serum or Plasma by Creatinine-based formula (MDRD) >60 [facility] Procedure Social History Code Duration Value Status Description Data Source(s ) Alcohol intake 08/19/2020 12:00:00 AM EST Ex-drinker (finding) comp leted Ex- drinker (finding) [facility] Tobacco use and exposure 08/19/2020 12:00:00 AM EST Never used co mpleted Never used [facility] Cigarette pack-years 08/19/2020 12:00:00 AM EST [facility] Cigarettes smoked current (pack per day) - Reported 08/19/20 20 12:00:00 AM EST [facility] Smoking 08/19/2020 12:00:00 AM EST Former smoker completed Former smoker [facility] Alcohol intake 08/10/2020 12:00:00 AM EST Ex-drinker (finding) comp leted Ex- drinker (finding) [facility] Alcohol intake 08/07/2020 12:00:00 AM EST Ex-drinker (finding) comp leted Ex- drinker (finding) [facility] Vital Signs ID Date Data Source [id number] 08/19/2020 04:10:38 PM EST [facility] Name Value Range Interpretation Code Description Data Source(s) TRANSFER FROM [facility] ID Date Data Source [id number] 08/14/2020 02:37:50 PM [facility] Name Value Range Interpretation Code Description Data Source(s) WEIGHT RECORDED 173.2 lb 173.2 lb [facility] Body height Measured 69 in 69 in [facility] WEIGHT RECORDED 185 lb 185 lb [facility] Body height Measured 69 in 69 in [facility] TRANSFER FROM [facility] Patient Treatment Plan of Care Planned Activity Planned Date Details Description Data Source (s) Tetracaine hydrochloride 5 MG/ML Ophthalmic Solution 020 03:15:00 PM [facility] fluorescein-benoxinate (FLURATE) 0.25-0.4 % ophthalmic solution 1 drop 08/10/2020 12:30:00 PM [facility] Phenylephrine Hydrochloride 25 MG/ML Ophthalmic Soluti on 08/10/2020 12:30:00 PM [facility] Tropicamide 10 MG/ML Ophthalmic Solution 08/10/2020 12:30:00 PM [facility] Erythromycin 0.005 MG/MG Ophthalmic Ointment 08/08/2020 12:00:00 AM [facility] Dorzolamide HCl-Timolol Mal 22.3-6.8 MG/ML Ophthalmic Solution (COSOPT) 08/08/2020 12:00:00 AM [facility] Acetaminophen 325 MG Oral Tablet 08/08/2020 12:00:00 AM [facility] Acetaminophen 325 MG Oral Tablet 08/06/2020 11:04:22 PM [facility]
[2020-09-29 13:41] VITALS: BP 119/75
== END 2020-09-29 13:55 | disposition home or self-care (01) ==
LOC: M ED 10:27
DX: H53.10 Unspecified subjective visual disturbances (principal); H02.846 Edema of left eye, unspecified eyelid; F17.200 Nicotine dependence, unspecified, uncomplicated; Z91.013 Allergy to seafood